=== PATIENT | male | born 1960 | race Caucasian/White ===

== ENCOUNTER 2017-09-05 06:15 | Day surgery (SDC) | payer BC ==
--- NOTE | 2017-08-21 09:16 | HP ---
DATE OF ADMISSION: 09/05/2017 DATE OF SURGERY: 09/05/2017. REASON FOR ADMISSION: Left inguinal hernia. BRIEF HISTORY: This is a 57-year-old gentleman. He states he has had a left inguinal hernia for the past 6 months, and over this time course, it is becoming more painful, and he wishes to have this repaired. He has had no nausea, no vomiting. Patient states the hernia is more noticeable when he gets constipated or he does not urinate. PAST MEDICAL HISTORY: No coronary artery disease, hypertension, or diabetes. Patient has a history of prostatism and is status post TURP. ALLERGIES: None. MEDICATIONS: None. 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 He does not smoke or drink. PHYSICAL EXAMINATION: Lungs: Clear. Heart: Regular rhythm. Abdomen: Soft, nontender, nondistended. He has an upper midline diastasis from xiphoid to the umbilicus. He has a very large left inguinal hernia with extension to the left proximal scrotum. The hernia is mostly reducible in the supine position. However, there is still a portion that cannot be entirely reduced. The left testicle and scrotum are within normal limits. On the right side, there is a very small right inguinal hernia as well. The right scrotum and testicle are within normal limits. IMPRESSION/PLAN: Bilateral inguinal hernias. This is a 57-year-old gentleman symptomatic from a large left inguinal hernia. A portion of it is chronically incarcerated. At this point, I would recommend proceeding with bilateral laparoscopic inguinal hernia repair with mesh. Due to the generosity of the hernia on the left, he is more likely to develop a postoperative seroma which may or may not resolve. This was clearly conveyed to this patient and his , and they understand and want to proceed. The indications, alternatives, and complications discussed. Questions answered. We will plan to obtain written consent the day of surgery. KRIS WETZEL M.D. [id number]
[2017-09-01 12:43] VITALS: BMI 23.6
[2017-09-05] MEDS ORDERED: TAMSULOSIN HCL 0.4 MG CAP.ER.24H (FP) ONE (06:57)
[2017-09-05] MEDS ORDERED: DEXAMETHASONE SOD PHOSPHATE/PF 10 MG/ML SDV ONE (07:20)
[2017-09-05] MEDS ORDERED: MIDAZOLAM HCL 2 MG/2 ML SINGLE DOSE VIAL ONE (07:21)
[2017-09-05] MEDS ORDERED: BUPIVACAINE HCL/PF (5 MG/ML) 30 ML VIAL IJ ONE (07:21)
[2017-09-05] MEDS ORDERED: PROPOFOL 20 ML ONE ×2 (07:33)
[2017-09-05] MEDS ORDERED: SUCCINYLCHOLINE CHLORIDE 200 MG/10 ML VIAL ONE (07:33)
[2017-09-05] MEDS ORDERED: ROCURONIUM BROMIDE 50 MG/5 ML VIAL ONE (07:34)
[2017-09-05] MEDS ORDERED: ceFAZolin SODIUM 1 GM VIAL ONE (08:19)
[2017-09-05] MEDS ORDERED: DEXAMETHASONE SOD PHOSPHATE 4 MG/1 ML VIAL ONE (08:22)
[2017-09-05] MEDS ORDERED: ONDANSETRON 4 MG/2 ML VIAL ONE ×2 (08:22→09:38)
[2017-09-05] MEDS ORDERED: NEOSTIGMINE METHYLSULFATE 0.5 MG/ML - 10 ML MDV ONE (08:51)
[2017-09-05] MEDS ORDERED: GLYCOPYRROLATE 0.2 MG/1 ML VIAL ONE (08:52)
[2017-09-05] MEDS ORDERED: oxyCODONE HCL 5 MG TABLET PO PRN (09:18)
[2017-09-05] MEDS ORDERED: ONDANSETRON 4 MG/2 ML VIAL IVPUSH PRN (09:18)
[2017-09-05] MEDS ORDERED: LACTATED RINGERS SOLUTION 1,000 ML IV SCH (09:30)
[2017-09-05 09:34] VITALS: TEMP 97.7
[2017-09-05] MEDS ORDERED: oxyCODONE HCL 5 MG TABLET ONE (10:11)
--- NOTE | 2017-09-05 10:19 | OP ---
DATE OF OPERATION: 09/05/2017 PREOPERATIVE DIAGNOSIS: Chronically incarcerated large inguinal hernia. POSTOPERATIVE DIAGNOSIS: Chronically incarcerated large inguinal hernia ( indirect), left indirect inguinal hernia. PROCEDURE: Laparoscopic repair of incarcerated left inguinal hernia, laparoscopic repair of right inguinal hernia. Both hernias were repaired with mesh. SURGEON: Kuldeep Burns MD CHIEF SCIENCE OFFICER: Grant Deras DO ANESTHESIA: Liliam Jensen MD (General). ESTIMATED BLOOD LOSS: Minimal. SPECIMEN: None. INDICATION FOR PROCEDURE: This is a 57-year-old gentleman with a 6-month history of having increasing pain and lump in the left groin region. On physical examination there is an obviously large left inguinal hernia that is partially incarcerated. He is here now for operative repair. DESCRIPTION OF PROCEDURE: The patient was identified and appropriately positioned on the operating room table. After placement of general anesthesia, the abdomen was prepped and draped in the usual sterile fashion with ChloraPrep. An infraumbilical incision was made and deepened to subcutaneous tissue. The fascia was divided on the left sharply, the muscles split. Under direct vision, a dissector balloon followed by a structural balloon placed. A suprapubic 11-mm port placed as well. The following structures on the left side were identified: Pubic tubercle, Amador's ligament, inferior epigastric vessels, spermatic cord, and lateral abdominal wall. During this dissection, the patient has no direct component and no attenuation. He had a large indirect inguinal hernia sac that was chronically incarcerated. The sac was densely hard as well. The findings were consistent more with previous surgery. A 5-mm right lower quadrant PE port was placed under direct vision to facilitate dissection of the sac and incarcerated contents back in the preperitoneal space. Once this was accomplished, a 4.5 x 6 piece of Versatex mesh was keyhole placed through the suprapubic port site. The mesh was wrapped around the cord structures laterally. Laterally, mesh anchored to the anterior abdominal wall and lateral abdominal wall. Medially, the mesh was anchored to the anterior abdominal wall, pubic tubercle, and Amador's ligament. Upon completion of the left side, similar structures on the right side identified. On the right side, the patient was noted to have an indirect inguinal hernia smaller. This was reduced back into the preperitoneal space. Another 4.5 x 6 piece of Versatex mesh was keyhole placed through the suprapubic port site. The mesh was wrapped around the cord structures laterally to reconstruct the internal ring. Laterally, the mesh was anchored to the anterior abdominal wall, lateral abdominal wall. Medially, the mesh well overlapped in the midline, anchored to the anterior abdominal wall, pubic tubercle, and Amador's ligament. All anterior abdominal wall and lateral abdominal wall anchors were placed under counterpalpation. The anchoring system used was Reliatech. Ports were removed. Port sites were hemostatic. The fascia at both 12 and infraumbilical port sites were reapproximated with interrupted 0 Vicryl suture. All skin closed with 4-0 Biosyn followed by Dermabond. At the conclusion of the case, sponge and needle counts were correct. ATTESTATION: Brief operative note handwritten on the preprinted form. [facility] will be queried prior to giving any narcotics. Adore CAZARES [id number] cc: Earl Golden MD MTDD
[2017-09-05 15:21] VITALS: BP 146/82; PULSE 76
== END 2017-09-05 15:15 | disposition home or self-care (01) ==
LOC: FASU 06:15
PROVIDERS: ATTEND Surgery
PROC: 0YUA4JZ Supplement Bilateral Inguinal Region with Synthetic Substitute, Percutaneous Endoscopic Approach (ICD-10-PCS; principal; 2017-09-05 08:25)
DX: K40.30 Unilateral inguinal hernia, with obstruction, without gangrene, not specified as recurrent (principal); K40.90 Unilateral inguinal hernia, without obstruction or gangrene, not specified as recurrent
CPT/HCPCS: 94760

== ENCOUNTER 2017-10-24 19:13 | Emergency (ER) | payer BC ==
[2017-10-24 19:16] VITALS: TEMP 97.4; BMI 23.6
--- NOTE | 2017-10-24 19:24 | PDOC ---
History of Present Illness <JohnAtiya - Last Filed: 10/24/17 20:27> - General History Source: Patient Exam Limitations: No Limitations <RerenancyEarlkeyshaMadeline koroma I - Last Filed: 10/24/17 20:48> - General Chief Complaint: Chest Pain Stated Complaint: CHEST TIGHTNESS Time Seen by Provider: 10/24/17 19:22 - History of Present Illness Initial Comments: 10/24/17 20:12 Patient is a 57 year old male, with a PMHx of inguinal hernia repair, who presents to the ER for chest pain. Patient currently is having an acute MO. Patient stated that chest pain began around 3pm while he was carrying heavy boxes. Patient states that his chest pain has been constant and has been getting progressively worse. Patient has a history of a similar chest pain. Patient also reports history of smoking. Patients father has a cardiac history. Patient also reports mild shortness of breath and diaphoresis. Denies further complaints at this time. He denies any recent fevers, chills, headache or dizziness. He denies any recent nausea, vomit, diarrhea or constipation He denies any recent dysuria, frequency, urgency or hematuria. Allergies: NKA Past surgical history: None reported. Social History: Current smoker. Denies EtOH use and recreational drug use. Primary Care Physician: Adult PAST MEDICAL HISTORY: no significant history PAST SURGICAL HISTORY: no significant history FAMILY HISTORY: father- cardiac history SOCIAL HISTORY: Pt lives with family and is employed. MEDICATIONS: reviewed ALLERGIES: As per nursing notes ROS General: +diaphoresis. No fevers or chills, no weakness, no weight loss HEENT: No change in vision. No sore throat, No ear pain Cardiovascular: +chest pain, +shortness of breath Respiratory:No cough, or wheezing. Gastrointestinal: No nausea, vomiting, diarrhea or constipation, No rectal bleeding Genitourinary: No dysuria, hematuria, or frequency Musculoskeletal: No joint or muscle pain or swelling Neurologic: No headache, vertigo, dizziness or loss of consciousness Psychiatric: No depression Skin: No rashes or easy bruising Endocrine: No increased thirst or abnormal weight change Allergic: No skin or latex allergy All other systems reviewed and normal General: Well-nourished well-developed individual, no acute distress HEENT: Throat: Normal, tonsils normal, no erythema or exudate Neck: Supple, no meningeal signs, no lymphadenopathy Eyes::Pupils equal reactive and round, extraocular motion intact Chest: Nontender to palpation Cardiac: S1-S2 normal, regular rate and rhythm, no murmurs rubs or gallops Respiratory: +Crackles bilateral bases Abdomen: Soft, nondistended, normal bowel sounds, nontender to palpation diffusely Extremities: Warm, dry, no cyanosis, clubbing, or edema Skin: No rashes Neuro: Alert and oriented x3, nonfocal exam, grossly intact, normal gait Psych: Normal mood and affect 10/24/17 20:27 (Atiya Lopez) A portion of this note was documented by scribe services under my direction. I have reviewed the details of the note, within reason, and agree with the documentation. The case summary and management plan written by me. Initial EKG shows 1-2 mm elevations inferiorly and 2-3 mm elevations in the 1 through V3. When comparison with an old EKG that is noted that there is a old right bundle branch block but otherwise no acute pathology on old EKG. EKG is consistent with a acute STEMI. Chest x-ray the mediastinum is not wide, there is some mild failure on the chest x-ray otherwise no acute pathology Assessment and plan: This is a 57-year-old male who comes in with some chest discomfort. Patient's initial cardiogram shows that he is having an acute STEMI. Dr. Cr was contacted who requested the patient be transferred to the [facility] for catheter lab. [facility] was contacted and discussed with the resident Dr. Pratt. Patient was accepted for transfer to the [facility] the attending physician is . Patient remained hemodynamically stable here in the emergency room. He was given 3 sublingual nitros, put on 2 L of oxygen, given Brilinta given 5000 units heparin bolus and started on a heparin drip. Patient was transferred via stat team to [facility]. Patient left the emergency department approximately 60 minutes after arrival (Madeline Henao I) Past History <Atiya Lopez - Last Filed: 10/24/17 20:27> - Past Medical History Anemia: No Asthma: No Cancer: No Cardiac Disorders: No CVA: No COPD: No CHF: No Dementia: No Diabetes: No GI Disorders: No Disorders: No HTN: No Hypercholesterolemia: No Liver Disease: No Seizures: No Thyroid Disease: No - Surgical History Abdominal Surgery: No Appendectomy: No Cardiac Surgery: No Cholecystectomy: No Lung Surgery: No Neurologic Surgery: No Orthopedic Surgery: No - Suicide/Smoking/Psychosocial Hx Smoking Status: Yes Smoking History: Current some day smoker Have you smoked in the past 12 months: No Number of Cigarettes Smoked Daily: 1 If you are a former smoker, when did you quit?: 1996 Cigars Per Day: 1 Information on smoking cessation initiated: Yes 'Breaking Loose' booklet given: 10/24/17 Hx Alcohol Use: Yes (RARELY) Drug/Substance Use Hx: No Substance Use Type: Alcohol Hx Substance Use Treatment: No <Madeline Henao I - Last Filed: 10/24/17 20:48> - Past Medical History Allergies/Adverse Reactions: Allergies Allergy/AdvReac Type Severity Reaction Status Date / Time No Known Allergies Allergy Verified 09/05/17 07:32 Home Medications: Ambulatory Orders No Home Medications 0 dose .ROUTE UTDICT 07/29/13 Oxycodone HCl/Acetaminophen [Percocet 5-325 mg Tablet] 1 tab PO Q4H PRN #42 tablet MDD 6 09/05/17 Cardiac Specific PMH - Complaint Specific PMHX Pacemaker: No <Madeline Henao I - Last Filed: 10/24/17 20:48> - Vital Signs Last Vital Signs Temp Pulse Resp BP Pulse Ox 97.4 F L 67 19 107/66 100 10/24/17 19:15 10/24/17 20:00 10/24/17 20:00 10/24/17 20:00 10/24/17 20:00 ED Treatment Course - LABORATORY CBC & Chemistry Diagram: 10/24/17 19:30 10/24/17 19:30 <Atiya Lopez - Last Filed: 10/24/17 20:27> - LABORATORY CBC & Chemistry Diagram: 10/24/17 19:30 10/24/17 19:30 <Madeline Henao I - Last Filed: 10/24/17 20:48> - ADDITIONAL ORDERS Additional order review: Laboratory Results 10/24/17 10/24/17 10/24/17 19:30 19:30 19:30 PT with INR 11.6 INR 1.04 Sodium 135 L Potassium 3.7 Chloride 102 Carbon Dioxide 25 Anion Gap 8 BUN 14 D Creatinine 0.8 Creat Clearance w eGFR > 60 Random Glucose 85 Calcium 8.9 Magnesium 2.2 Total Bilirubin 0.6 AST 16 D ALT 19 D Alkaline Phosphatase 61 D Creatine Kinase 109 Troponin I 0.18 H Total Protein 6.9 Albumin 3.6 10/24/17 19:30 RBC 5.03 MCV 93.1 MCHC 33.1 RDW 13.0 MPV 8.8 Neutrophils % 78.5 Lymphocytes % 10.3 Monocytes % 7.9 Eosinophils % 2.7 Basophils % 0.6 - RADIOLOGY Radiology Studies Ordered: Category Date Time Status CHEST X-RAY PORTABLE* [RAD] Stat Radiology 10/24/17 19:39 Taken - Medications Given in the ED: ED Medications Discontinued Medications Generic Name Dose Route Start Last Admin Trade Name Freq PRN Reason Stop Dose Admin Aspirin 325 mg 10/24/17 19:26 10/24/17 19:30 Asa - PO 10/24/17 19:27 325 mg ONCE ONE Administration Heparin Sodium (Porcine) 5,000 unit 10/24/17 20:05 10/24/17 20:13 Heparin - IVPUSH 5,000 unit PRN PRN Administration Heparin Nitroglycerin 0.3 mg 10/24/17 19:26 10/24/17 19:44 Nitrostat - SL 10/24/17 19:27 Not Given ONCE ONE Nitroglycerin 0.3 mg 10/24/17 19:27 10/24/17 19:54 Nitrostat - SL 0.3 mg Q5M PRN Administration FOR CHEST PAIN Ticagrelor 180 mg 10/24/17 20:04 10/24/17 20:08 Brilinta - PO 10/24/17 20:05 180 mg ONCE STA Administration Medical Decision Making - Critical Care Time Total Critical Care Time (minutes): 60 Critical Care Statement: The care of this patient involved high complexity decision making to prevent further life threatening deterioration of the patient 's condition and/or to evaluate & treat vital organ system(s) failure or risk of failure. <Madeline Henao I - Last Filed: 10/24/17 20:48> *DC/Admit/Observation/Transfer <Atiya Lopez - Last Filed: 10/24/17 20:27> <Madeline Henao I - Last Filed: 10/24/17 20:48> Diagnosis at time of Disposition: ST elevation (STEMI) myocardial infarction Qualifiers: Involved coronary artery: unspecified coronary artery Qualified Code(s): I21.3 - ST elevation (STEMI) myocardial infarction of unspecified site - Discharge Dispostion Disposition: TRANSFER ACUTE CARE/OTHER HOSP Condition at time of disposition: Stable - Referrals Referrals: Leila Jo MD [Primary Care Provider] - - Patient Instructions - Post Discharge Activity - Attestations Scribe Attestion: 10/24/17 20:20 Documentation prepared by Atiya Lopez, acting as biomedical engineering internship for Madeline Henao MD. (Atiya Lopez)
[2017-10-24] MEDS: NITROGLYCERIN SUBLINGUAL 1/200 0.3 MG BTL SL PRN ×3 (19:25→19:54)
[2017-10-24] MEDS ORDERED: NITROGLYCERIN SUBLINGUAL 1/200 0.3 MG BTL SL ONE (19:26)
[2017-10-24] MEDS ORDERED: ASPIRIN 81 MG CHEWABLE TABLETS PO ONE (19:26)
[2017-10-24] MEDS ORDERED: NITROGLYCERIN SUBLINGUAL 1/150 0.4 MG TAB ONE ×2 (19:28→19:52)
[2017-10-24] MEDS ORDERED: ASPIRIN 81 MG CHEWABLE TABLETS ONE (19:30)
[2017-10-24 20:01] VITALS: BP 107/66; PULSE 67
[2017-10-24] MEDS ORDERED: TICAGRELOR 90 MG TABLET PO STA (20:04)
[2017-10-24] MEDS ORDERED: HEPARIN NA (PORCINE) 5,000 UNITS/ML 1ML VIAL ONE (20:04)
[2017-10-24] MEDS ORDERED: HEPARIN INFUSION - 25,000 UNITS/500 ML INFUS.BAG IVPB ONE (20:05)
[2017-10-24] MEDS ORDERED: TICAGRELOR 90 MG TABLET PO ONE (20:05)
[2017-10-24] MEDS ORDERED: HEPARIN NA (PORCINE) 5,000 UNITS/ML 1ML VIAL IVPUSH PRN ×3 (20:05)
[2017-10-24 20:09] LABS: MEAN PLT VOLUME 8.8 fl (7.5-11.1)
[2017-10-24 20:15] LABS: BASO % 0.6 % (0-2.0); EOS % 2.7 % (0-4.5); MCH 30.8 pg (25.7-33.7); MCHC 33.1 g/dl (32.0-35.9); MEAN CELL VOLUME 93.1 fl (80-96); NEUT % 78.5 % (42.8-82.8); PLATELET COUNT 283 K/MM3 (134-434); WHITE BLOOD COUNT 14.6 K/mm3 (4.0-10.8)
[2017-10-24] MEDS ORDERED: HEPARIN - 25,000 UNIT in SODIUM CHLORIDE 495 ML IV SCH (20:15)
[2017-10-24 20:16] LABS: INR 1.04 (0.82-1.09); PROTHROMBIN TIME (PATIENT) 11.6 SEC (10.2-13.0)
[2017-10-24 20:22] LABS: ALBUMIN 3.6 g/dl (3.5-5.0); ALK PHOS 61 U/L (32-92); ANION GAP 8 (8-16); BILIRUBIN,TOTAL 0.6 mg/dl (0.2-1.0); CALCIUM 8.9 mg/dl (8.4-10.2); CO2 25 mmol/L (22-28); CREATININE 0.8 mg/dl (0.6-1.3); GLUCOSE,RANDOM 85 mg/dl (74-106); MAGNESIUM 2.2 mg/dL (1.8-2.4); SGOT/AST 16 U/L (10-42); SGPT/ALT 19 U/L (10-40); TOT PROT 6.9 g/dl (6.4-8.3)
[2017-10-24 20:30] LABS: TROPONIN I 0.18 ng/ml (0.00-0.05)
--- NOTE | 2017-10-25 18:34 | EKG ---
Test Reason : Blood Pressure : / mmHG Vent. Rate : 064 BPM Atrial Rate : 064 BPM P-R Int : 174 ms QRS Dur : 142 ms QT Int : 426 ms P-R-T Axes : 081 081 060 degrees QTc Int : 439 ms SINUS RHYTHM WITH PREMATURE SUPRAVENTRICULAR COMPLEXES RIGHT BUNDLE BRANCH BLOCK INFERIOR INFARCT , POSSIBLY ACUTE ACUTE AR / STEMI ABNORMAL ECG WHEN COMPARED WITH ECG OF 19-MAR-2005 20:38, PREMATURE SUPRAVENTRICULAR COMPLEXES ARE NOW PRESENT RIGHT BUNDLE BRANCH BLOCK IS NOW PRESENT INFERIOR INFARCT IS NOW PRESENT Confirmed by PRIETO NOLAN MD ([id number]) on 10/25/2017 6:33:58 PM Referred By: MD ESCALERA Confirmed By:PRIETO NOLAN MD
== END 2017-10-24 20:20 | disposition short-term general hospital (02) ==
LOC: FER 19:13
DX: I21.3 ST elevation (STEMI) myocardial infarction of unspecified site (principal)
CPT/HCPCS: 36415; 71010-TC; 80053; 82550; 83735; 84484; 85025; 85610; 93005; 99283-25; J1644

== ENCOUNTER 2018-12-11 15:59 | Emergency (ER) | payer BC ==
[2018-12-11 16:04] VITALS: BP 112/66; PULSE 77; TEMP 98.4; BMI 24.3
--- NOTE | 2018-12-11 17:12 | PDOC ---
History of Present Illness - General Chief Complaint: Laceration Stated Complaint: i cut my hand Time Seen by Provider: 12/11/18 16:29 History Source: Patient Exam Limitations: No Limitations - History of Present Illness Initial Comments: 12/11/18 18:08 58 yo male presents to the ED after accidentally cutting the dorsum of his right hand on a sharp edge. Pt on AC, hemostasis not achieved but wound compressed and blood loss minimal. Denies loss of sensation or strength distal to the lac. Last Tdap within 10 years Past History - Past Medical History Allergies/Adverse Reactions: Allergies Allergy/AdvReac Type Severity Reaction Status Date / Time No Known Allergies Allergy Verified 12/11/18 15:59 Anemia: No Asthma: No Cancer: No Cardiac Disorders: No CVA: No COPD: No CHF: No Dementia: No Diabetes: No GI Disorders: No Disorders: No HTN: No Hypercholesterolemia: No Liver Disease: No Seizures: No Thyroid Disease: No - Surgical History Abdominal Surgery: No Appendectomy: No Cardiac Surgery: No Cholecystectomy: No Lung Surgery: No Neurologic Surgery: No Orthopedic Surgery: No - Suicide/Smoking/Psychosocial Hx Smoking Status: Yes Smoking History: Never smoked Have you smoked in the past 12 months: No Number of Cigarettes Smoked Daily: 1 If you are a former smoker, when did you quit?: 1996 Cigars Per Day: 1 'Breaking Loose' booklet given: 10/24/17 Hx Alcohol Use: No Drug/Substance Use Hx: No Substance Use Type: Alcohol Hx Substance Use Treatment: No Review of Systems - Review of Systems Respiratory: No: Shortness of Breath Cardiac (ROS): No: Chest Pain ABD/GI: No: Nausea, Vomiting Musculoskeletal: No: Muscle Weakness Integumentary: Yes: Lesions (3 cm to left hand) Neurological: No: Numbness, Paresthesia, Tingling, Weakness *Physical Exam - Vital Signs Last Vital Signs Temp Pulse Resp BP Pulse Ox 98.4 F 77 16 112/66 97 12/11/18 15:59 12/11/18 15:59 12/11/18 15:59 12/11/18 15:59 12/11/18 15:59 - Physical Exam General Appearance: Yes: Nourished, Appropriately Dressed. No: Apparent Distress HEENT: positive: EOMI Cardiovascular: positive: Regular Rhythm, Regular Rate Comments:: 12/11/18 18:12 equal radial pulses bilaterally Extremity: positive: Normal Capillary Refill Integumentary: positive: Normal Color, Dry, Warm, Other (3 cm linear lac without foreign body) Neurologic: positive: Fully Oriented, Alert, Normal Mood/Affect, Normal Response , Motor Strength 5/5. negative: Numbness, Sensory Deficit Moderate Sedation - Procedure Monitoring Vital Signs: Procedure Monitoring Vital Signs Temperature 98.4 F 12/11/18 15:59 Pulse Rate 77 12/11/18 15:59 Respiratory Rate 16 12/11/18 15:59 Blood Pressure 112/66 12/11/18 15:59 O2 Sat by Pulse Oximetry (%) 97 12/11/18 15:59 Procedures - Laceration/Wound Repair Left Dorsal Hand Wound Length: 2.6 to 5.0 cm Wound Explored: clean, no foreign body present Wound's Depth, Shape: superficial, linear Anesthesia: 1% Lidocaine Wound Debrided: minimal Wound Repaired With: Sutures Suture Size/Type: 5:0 Number of Sutures: 3 Layer Closure: No Medical Decision Making - Medical Decision Making 12/11/18 17:07 Wound cleaned under high pressure with sterile water 5 sutures total placed, 5-0 nylon without complications Distal strength pulses and sensation intact prior to and after sutures Vitals WNL, NAD strict return precautions given and return for removal 5 days pt understands plan *DC/Admit/Observation/Transfer Diagnosis at time of Disposition: Laceration of left hand Qualifiers: Encounter type: initial encounter Foreign body presence: without foreign body Qualified Code(s): S61.412A - Laceration without foreign body of left hand, initial encounter - Discharge Dispostion Disposition: HOME Condition at time of disposition: Stable Decision to Admit order: No - Referrals - Patient Instructions Printed Discharge Instructions: DI for Laceration Repair Additional Instructions: Please make an appointment with your primary care doctor within the next 48 hours. Return to the ER for new or concerning symptoms including but not limited to: swelling, drainage from wound site, high fevers, loss of strength or sensation to the hand. Keep the wound clean and dry for the next 24 hours. Return to the ER in 5-7 days for suture removal. Take over the counter Motrin for pain relief. Use vitamin E to prevent scar formation. Thank you - Post Discharge Activity
--- NOTE | 2018-12-11 17:13 | PDOC ---
Attending Attestation - Resident Resident Name: Nelson Dickinson - ED Attending Attestation I have performed the following: I have examined & evaluated the patient, The case was reviewed & discussed with the resident, I agree w/resident's findings & plan, Exceptions are as noted - HPI HPI: 12/11/18 17:53 Laceration dorsum of hand with a trawl. Appears superficial. No pain or swelling. Full extensor tendon function to all 5 digits against resistance. No distal sensory or motor deficits. Pulses full. - Physicial Exam PE: 12/11/18 17:55 As above - Medical Decision Making 12/11/18 17:55 Assessment: Superficial laceration dorsum of hand Plan: Repair was performed by Dr. Dickinson. Local anesthesia 1% lidocaine plain Wound was scrubbed and irrigated with saline. Explored and found to be superficial. No debris or foreign body or present. Closed with interrupted 5-0 nylon. Bacitracin. Dressing. Wound care discussed. Follow up immediately if recurrent bleeding or sign of infection. Tolerated procedure well. No pain upon discharge. To have the sutures out in 7-10 days 12/11/18 17:58
== END 2018-12-11 17:18 | disposition home or self-care (01) ==
LOC: FER 15:59
PROC: 0HQFXZZ Repair Right Hand Skin, External Approach (ICD-10-PCS; principal; 2018-12-11)
DX: S61.411A Laceration without foreign body of right hand, initial encounter (principal); W26.8XXA Contact with other sharp object(s), not elsewhere classified, initial encounter; Y93.89 Activity, other specified; Y92.89 Other specified places as the place of occurrence of the external cause; S61.412A Laceration without foreign body of left hand, initial encounter; Z87.891 Personal history of nicotine dependence
CPT/HCPCS: 99282-25

== ENCOUNTER 2019-03-17 23:12 | Emergency (ER) | payer BC ==
--- NOTE | 2019-03-17 23:36 | PDOC ---
Documentation entered by Maryanne Khan SCRIBE, acting as scribe for Madeline Henao MD. Madeline Henao MD: This documentation has been prepared by the Bill stern Lincy, SCRIBE, under my direction and personally reviewed by me in its entirety. I confirm that the documentation accurately reflects all work , treatment, procedures, and medical decision making performed by me. History of Present Illness - General Chief Complaint: Laceration Stated Complaint: BLEEDING S/P SHAVING History Source: Patient Exam Limitations: No Limitations Past History - Past Medical History Allergies/Adverse Reactions: Allergies Allergy/AdvReac Type Severity Reaction Status Date / Time No Known Allergies Allergy Verified 12/11/18 15:59 Anemia: No Asthma: No Cancer: No Cardiac Disorders: No CVA: No COPD: No CHF: No Dementia: No Diabetes: No GI Disorders: No Disorders: No HTN: Yes Hypercholesterolemia: Yes Liver Disease: No Seizures: No Thyroid Disease: No - Surgical History Abdominal Surgery: No Appendectomy: No Cardiac Surgery: No Cholecystectomy: No Lung Surgery: No Neurologic Surgery: No Orthopedic Surgery: No - Immunization History Immunization Up to Date: Yes - Suicide/Smoking/Psychosocial Hx Smoking Status: Yes Smoking History: Unknown if ever smoked Have you smoked in the past 12 months: No Number of Cigarettes Smoked Daily: 0 If you are a former smoker, when did you quit?: 1996 Cigars Per Day: 1 Information on smoking cessation initiated: No 'Breaking Loose' booklet given: 10/24/17 Hx Alcohol Use: No Drug/Substance Use Hx: No Substance Use Type: Alcohol Hx Substance Use Treatment: No *Physical Exam - Vital Signs Last Vital Signs Temp Pulse Resp BP Pulse Ox 97.6 F 67 14 119/74 99 03/17/19 23:15 03/17/19 23:15 03/17/19 23:15 03/17/19 23:15 03/17/19 23:15 *DC/Admit/Observation/Transfer Diagnosis at time of Disposition: Chin laceration Qualifiers: Encounter type: initial encounter Qualified Code(s): S01.81XA - Laceration without foreign body of other part of head, initial encounter - Discharge Dispostion Disposition: HOME Condition at time of disposition: Good Decision to Admit order: No - Referrals Referrals: Leila Jo MD [Primary Care Provider] - - Patient Instructions Printed Discharge Instructions: DI for Laceration Repair With Dermabond Additional Instructions: Do not use any petroleum based products on the glue as it will cause it, for early. Return to the emergency department immediately with ANY new, persistent or worsening symptoms. Continue any medications as previously prescribed by your physician. You should follow up with your primary doctor as soon as possible regarding today's emergency department visit. . Please make sure your doctor reviews the results of your emergency evaluation. Thank you for coming to the Emergency Department today for your care. It was a pleasure to see you today. Please note that your evaluation is INCOMPLETE until you follow-up with your doctor. - Post Discharge Activity
[2019-03-17 23:52] VITALS: BP 119/74; PULSE 67; TEMP 97.6; BMI 24.3
--- NOTE | 2019-03-18 00:17 | PDOC ---
Documentation entered by Maryanne Khan SCRIBE, acting as scribe for Madeline Henao MD. Madeline Henao MD: This documentation has been prepared by the estrellitaibeBill Lincy, SCRIBE, under my direction and personally reviewed by me in its entirety. I confirm that the documentation accurately reflects all work , treatment, procedures, and medical decision making performed by me. *Physical Exam - Vital Signs Last Vital Signs Temp Pulse Resp BP Pulse Ox 97.6 F 67 14 119/74 99 03/17/19 23:15 03/17/19 23:15 03/17/19 23:15 03/17/19 23:15 03/17/19 23:15 Progress Note - Progress Note Progress Note: Original note accidentally signed prior to completion. The patient is a 58-year-old male presents to the emergency department s/p a cut to the chin thats actively bleeding. The patient reports around 8:30 pm today, he was shaving when he sustained a small cut to his chin. The patient reports since then the wounds been actively bleeding, no relief with pressure. The patient reports hes currently on AC. PAST MEDICAL HISTORY: HTN and hx of ME. PAST SURGICAL HISTORY: no significant history FAMILY HISTORY: no pertinent history SOCIAL HISTORY: Pt lives with family and is employed. MEDICATIONS: on AC ALLERGIES: As per nursing notes General: No fevers or chills, no weakness, no weight loss HEENT: No change in vision. No sore throat,. No ear pain CardioVascular: No chest pain or shortness of breath Respiratory:No cough, or wheezing. Gastrointestinal: no nausea, vomiting, diarrhea or constipation, No rectal bleeding Genitourinary: No dysuria, hematuria, or frequency Musculoskeletal: No joint or muscle pain or swelling Neurologic: No headache, vertigo, dizziness or loss of consciousness Psychiatric: nor depression Skin: +cut to the chin with bleeding. No rashes or easy bruising Endocrine: no increased thirst or abnormal weight change Allergic: no skin or latex allergy All other systems reviewed and normal GENERAL: The patient is awake, alert, and fully oriented, in no acute distress. HEAD: Normal with no signs of trauma. EYES: Pupils equal, round and reactive to light, extraocular movements intact, sclera anicteric, conjunctiva clear. EXTREMITIES: Normal range of motion, no edema. NEUROLOGICAL: Normal speech, normal gait. PSYCH: Normal mood, normal affect. SKIN: 2x2 mm laceration to the anterior chin, with venous oozing. Warm, Dry, normal turgor, no rashes or lesions noted. Assessment and plan: This is a 58-year-old male who comes in complaining of a laceration to his chin that he cut his chin well shaving and is on blood thinners. Patient said he is unable to get it to stop. Procedure note Dermabond. Dermabond was applied to the laceration with good control the bleeding Patient discharged home will follow-up with his primary care doctor as needed *DC/Admit/Observation/Transfer Diagnosis at time of Disposition: Chin laceration Qualifiers: Encounter type: initial encounter Qualified Code(s): S01.81XA - Laceration without foreign body of other part of head, initial encounter - Discharge Dispostion Disposition: HOME Condition at time of disposition: Good - Referrals Referrals: Leila Jo MD [Primary Care Provider] - - Patient Instructions Printed Discharge Instructions: DI for Laceration Repair With Dermabond Additional Instructions: Do not use any petroleum based products on the glue as it will cause it, for early. Return to the emergency department immediately with ANY new, persistent or worsening symptoms. Continue any medications as previously prescribed by your physician. You should follow up with your primary doctor as soon as possible regarding today's emergency department visit. . Please make sure your doctor reviews the results of your emergency evaluation. Thank you for coming to the Emergency Department today for your care. It was a pleasure to see you today. Please note that your evaluation is INCOMPLETE until you follow-up with your doctor. - Post Discharge Activity
== END 2019-03-17 23:42 | disposition home or self-care (01) ==
LOC: FER 23:12
PROC: 0HQ1XZZ Repair Face Skin, External Approach (ICD-10-PCS; principal; 2019-03-17)
DX: S01.81XA Laceration without foreign body of other part of head, initial encounter (principal); W26.0XXA Contact with knife, initial encounter; Y93.E8 Activity, other personal hygiene; Y92.002 Bathroom of unspecified non-institutional (private) residence as the place of occurrence of the external cause; I10 Essential (primary) hypertension; Z79.01 Long term (current) use of anticoagulants; I25.2 Old myocardial infarction
CPT/HCPCS: 99282-25

== ENCOUNTER 2023-07-30 09:57 | Day surgery (SDC) | payer BC ==
[2023-07-28 14:52] VITALS: BMI 23.9
[2023-07-30] MEDS ORDERED: CIPROFLOXACIN HCL 0.3% OPHTH 2.5ML BOTTLE ONE (10:13)
[2023-07-30] MEDS ORDERED: CYCLOPENTOLATE 2% OPHTH SOLN 2 ML BOTTLE ONE (10:13)
[2023-07-30] MEDS ORDERED: PHENYLEPHRINE 2.5% OPTHALMIC DROP 2ML BOTTLE ONE (10:13)
[2023-07-30] MEDS ORDERED: TROPICAMIDE 1% OPHTH SOLN 15 ML BOTTLE ONE (10:13)
[2023-07-30] MEDS ORDERED: ACETAMINOPHEN 325 MG TABLET (FP) PO PRN (10:16)
[2023-07-30] MEDS ORDERED: NEO/POLYMYX B SULF/DEXAMETH OPHTHALMIC 5ML BOTTLE ONE (10:23)
[2023-07-30] MEDS ORDERED: BSS (NA/CA/MG/K) BALANCED SALT SOLUTION OPHTH SOLN 15 ML BOTTLE ONE (10:23)
[2023-07-30] MEDS ORDERED: TETRACAINE 0.5% OPHTH SOLN 2 ML BOTTLE ONE (10:23)
[2023-07-30] MEDS ORDERED: LIDOCAINE 1% P/F 10 MG/ML VIAL ONE (10:23)
[2023-07-30] MEDS ORDERED: CARBACHOL 0.01% INTRA-OCULAR 1.5 ML VIAL ONE (10:23)
[2023-07-30] MEDS ORDERED: CIPROFLOXACIN HCL 0.3% OPHTH 2.5ML BOTTLE OD ONE ×3 (10:30→10:40)
[2023-07-30] MEDS ORDERED: PHENYLEPHRINE 2.5% OPHTH SOLN 15 ML BOTTLE OD ONE ×3 (10:35→10:45)
[2023-07-30] MEDS ORDERED: TROPICAMIDE 1% OPHTH SOLN 15 ML BOTTLE OD ONE ×3 (10:35→10:45)
[2023-07-30] MEDS ORDERED: CYCLOPENTOLATE 2% OPHTH SOLN 2 ML BOTTLE OD ONE ×3 (10:35→10:45)
[2023-07-30 10:36] VITALS: RESP 18
[2023-07-30] MEDS ORDERED: MIDAZOLAM HCL 2 MG/2 ML SINGLE DOSE VIAL ONE (10:42)
[2023-07-30 12:22] VITALS: TEMP 97.7
[2023-07-30 12:35] VITALS: BP 116/74; PULSE 65
== END 2023-07-30 12:25 | disposition home or self-care (01) ==
LOC: FASU 09:57
PROVIDERS: ATTEND Ophthalmology
PROC: 08RJ3JZ Replacement of Right Lens with Synthetic Substitute, Percutaneous Approach (ICD-10-PCS; principal; 2023-07-30 11:16)
DX: H26.8 Other specified cataract (principal)
CPT/HCPCS: 66984; V2632